=== PATIENT | male | born 1980 | race Caucasian/White ===

== ENCOUNTER 2018-10-23 12:34 | Outpatient (CLI) | payer BC ==
--- NOTE | 2018-10-23 14:03 | RAD ---
2 VIEW CHEST: Date: 10/23/18 INDICATION: Persistent cough, URI. FINDINGS: There is no evidence of consolidation, effusion, or discrete pneumothorax. Curvilinear density at the inferior left chest is present, which may be related to scar or volume loss. There is a partially im aged catheter which traverses the right neck, right chest, and into the abdomen, below field of view. IMPRESSION: Curvilinear density inferior left chest favoring scar or volume loss. Otherwise, no lobar consolidati on. POS: CELESTE
== END 2018-10-23 12:35 | disposition home or self-care (01) ==
LOC: BICRAD 12:34
PROVIDERS: ATTEND Family Medicine
DX: J06.9 Acute upper respiratory infection, unspecified (principal); J98.4 Other disorders of lung
CPT/HCPCS: 71046

== ENCOUNTER 2018-11-06 13:34 | Outpatient (CLI) | payer BC ==
--- NOTE | 2018-11-06 14:52 | CT ---
FCT brain noncontrast: 10/17/2018 HISTORY: 38-year-old male with chronic and acute right serous otitis media. COMPARISON: 10/18/2016 FINDINGS: There is a new [employer]IT[employer] shunt catheter entering the intracranial cavity through a new right parietal gunnar h ole. The catheter travels anteriorly and slightly medially such that the distal tip is at midline in the region of the foramen of Monro. The lateral and third ventricles have become significantly smalle r now, now collapsed and slitlike. There is no evidence of acute intra-axial, subdural, epidural, or subarachnoid, hemorrhage. Again noted is the right temporoparietal craniotomy bone flap. Again demons trated is the extensive opacification of right mastoid air cells and significant partial opacificatio n of right middle ear cavity and right mastoid antrum. The contralateral left tympanomastoid cavities are grossly clear. Again noted is the 3 x 1.5 cm extra-axial fluid collection at the medial aspect o f the left middle cranial fossa. This is probably an arachnoid cyst. IMPRESSION: 1.) Upon placement of a new ventriculoperitoneal shunt catheter, the lateral and third ventricles hav e become collapsed and slitlike. Recommend clinical correlation for possibility of over shunting. 2) there continues to be severe opacification of the right tympanomastoid cavity. 3) old right temporoparietal craniotomy changes.
--- NOTE | 2018-11-06 15:02 | CT ---
FCT temporal bones noncontrast: 11/06/2018 HISTORY: 38-year-old male with H65.20 chronic serous otitis media, unspecified near H65.01 acute serous otitis media, right ear G96.0 cerebrospinal fluid leak COMPARISON: None FINDINGS: Right: Severe partial opacification of the epitympanum, mesotympanum, and hypotympanum. Moderate size pocket of air abuts a portion of the cochlea. Oval window and round window niches are opacified. Aditus ad antrum, mastoid antrum, and all of right mastoid air cells, are totally opacified. No erosion or disp lacement of ossicles or scutum. Ossicles are almost completely surrounded by soft tissue or fluid den sity material. Several tiny defects in the right tegmen tympani suspicious for foci of dehiscence. No definite dehiscence identified involving tegmen mastoideum. External auditory canal is clear. Left: Entire left tympanomastoid cavity is clear. Ossicles are intact. Scutum, tegmen tympani, and tegmen m astoideum, are intact. External auditory canal is intact. No morphologic abnormality identified involving bilateral internal auditory canals, cochleas, vestibu les, vestibular aqueducts, semicircular canals, carotid canals, jugular bulbs, or TMJs. No dehiscence of superior semicircular canals. IMPRESSION: 1.) Severe partial opacification of right middle ear cavity, total opacification in the right mastoid antrum, and total opacification of right mastoid air cells. 2) evidence for multifocal dehiscence of the right tegmen tympani. 3) right temporal craniotomy changes. 4) normal left temporal bone structures.
== END 2018-11-06 13:35 | disposition home or self-care (01) ==
LOC: SCSCT 13:34
PROVIDERS: ATTEND Otolaryngology Plastic Surgery within the Head & Neck
DX: H65.20 Chronic serous otitis media, unspecified ear (principal); G96.0 Cerebrospinal fluid leak; H65.01 Acute serous otitis media, right ear; H74.8X1 Other specified disorders of right middle ear and mastoid; H83.8X1 Other specified diseases of right inner ear; Z98.890 Other specified postprocedural states
CPT/HCPCS: 70450; 70480